=== PATIENT | male | born 1995 | race Caucasian/White ===

== ENCOUNTER 2017-09-29 08:18 | Emergency (ER) | payer OTHER ==
[2017-09-29 08:29] VITALS: RESP 20; TEMP 97.7
[2017-09-29] MEDS: SODIUM CHLORIDE 0.9% 1000ML 1,000 ML IV SCH (08:55)
[2017-09-29 09:06] VITALS: BP 110/66; PULSE 60; O2SAT 100
[2017-09-29 09:40] LABS: HEMATOCRIT 43 % (39-53); HEMOGLOBIN 14.5 gm/dl (13.5-17.7); MEAN CORPUSCULAR HEMOGLOBIN 32.7 pg (27.0-32.0); MEAN CORPUSCULAR VOLUME 96 fL (80-100)
[2017-09-29 09:42] LABS: ALBUMIN 3.4 gm/dl (3.4-5.0); BILIRUBIN,TOTAL 0.7 mg/dl (0.2-1.0); CARBON DIOXIDE 32.9 mEq/L (21-32); CREATININE 1.19 mg/dl (0.80-1.30); POTASSIUM 4.8 mMol/L (3.5-5.1); THYROID STIMULATING HORMONE 2.083 uIU/ml (0.358-3.740); TOTAL PROTEIN 6.9 gm/dl (6.4-8.2)
[2017-09-29 09:43] LABS: BASOPHILS % (AUTO) 0 % (0-3); EOSINOPHILS % (AUTO) 4 % (0-9); LYMPHOCYTES % (AUTO) 18.9 % (10-50); MONOCYTES % (AUTO) 5.3 % (0-12); NEUTROPHILS % (AUTO) 71.7 % (37-80)
== END 2017-09-29 10:20 | disposition home or self-care (01) | DRG 149 ==
LOC: ED 08:18
DX: R42 Dizziness and giddiness (principal); M10.9 Gout, unspecified; M79.671 Pain in right foot; R40.2362 Coma scale, best motor response, obeys commands, at arrival to emergency department; R40.2142 Coma scale, eyes open, spontaneous, at arrival to emergency department; R40.2252 Coma scale, best verbal response, oriented, at arrival to emergency department
CPT/HCPCS: 36415; 70450; 80053; 84443; 84550; 85025; 93005; 96365; 99283; 99284

== ENCOUNTER 2018-07-22 15:48 | Emergency (ER) | payer OTHER ==
[2018-07-22 15:57] VITALS: TEMP 97.3
[2018-07-22] MEDS ORDERED: APAP/HYDROCODONE 1 EACH TABLET PO PRN (16:05)
[2018-07-22] MEDS ORDERED: KETOROLAC TROMETHAMINE 30 MG/ML SOL IM ONE (16:05)
[2018-07-22] MEDS ORDERED: KETOROLAC TROMETHAMINE 30 MG/ML SOL ONE (16:07)
[2018-07-22] MEDS ORDERED: ACETAMI/HYDROCO 325/10 TAB PO ONE (16:07)
[2018-07-22] MEDS ORDERED: APAP/HYDROCODONE 1 EACH TABLET ONE (16:07)
[2018-07-22 16:42] VITALS: BP 116/72; PULSE 65; RESP 16; O2SAT 100
== END 2018-07-22 17:29 | disposition home or self-care (01) | DRG 605 ==
LOC: ED 15:48
DX: S80.02XA Contusion of left knee, initial encounter (principal); R40.2362 Coma scale, best motor response, obeys commands, at arrival to emergency department; R40.2142 Coma scale, eyes open, spontaneous, at arrival to emergency department; R40.2252 Coma scale, best verbal response, oriented, at arrival to emergency department; V80.010A Animal-rider injured by fall from or being thrown from horse in noncollision accident, initial encounter
CPT/HCPCS: 73560; 96372; 99283; J1885; A9270-GY